=== PATIENT | female | born 1970 | race Two or more races ===

== ENCOUNTER 2017-01-25 08:02 | Emergency (ER) | payer OTHER ==
[2017-01-25 08:13] VITALS: BP 115/69; PULSE 83; TEMP 98; BMI 32.3
--- NOTE | 2017-01-25 09:19 | PDOC ---
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 Patient reports recently taking Augmentin, Bentyl, prednisone and cetirizine when asked patient why she was taken the medication she states she had something called "with my liver" medication did not coincide to the patient was stating so I called her primary care doctor spoke to Dr. Hampton who states patient is being treated for upper respiratory infection and gallstones. Patient was unaware that she had an upper respiratory infection. Patient denies any respiratory difficulty, no swelling to throat, no difficulty swallowing, no fever.] Past Medical History: [Patient is unsure if she has hepatitis A and B]. Allergies: No known allergies Medications: [See medication list] Family History: Non-contributory Social History: Denies smoking, alcohol use, or IVDU Review of Systems GENERAL/CONSTITUTIONAL: [No fever or chills. No weakness. No weight change.] HEAD, EYES, EARS, NOSE AND THROAT: [No change in vision. No ear pain or discharge. No sore throat. ] CARDIOVASCULAR: [No chest pain or shortness of breath.] RESPIRATORY: [No cough, wheezing, or hemoptysis.] GASTROINTESTINAL: [No nausea, vomiting, diarrhea or constipation. No rectal bleeding.] GENITOURINARY: [No dysuria, frequency, or change in urination.] MUSCULOSKELETAL: [No joint or muscle swelling or pain. No neck or back pain.] SKIN AND BREASTS: [No rash or easy bruising.] NEUROLOGIC: [No headache, vertigo, loss of consciousness, or loss of sensation.] PSYCHIATRIC: [No depression or anxiety.] ENDOCRINE: [No increased thirst. No abnormal weight change.] HEMATOLOGIC/LYMPHATIC: [No anemia, easy bleeding, or history of blood clots.] ALLERGIC/IMMUNOLOGIC: [Pruritic papular erythematous mildly nonraised areas to bilateral arms, legs.] Physical Exam: GENERAL: [The patient is awake, alert, and fully oriented, in no acute distress. ] EYES: [Pupils equal, round and reactive to light, extraocular movements intact, sclera anicteric, conjunctiva clear.] ENT: [Ears normal, nares patent, oropharynx clear without exudates. Moist mucous membranes. No uvula deviation] NECK: [Normal range of motion, supple without lymphadenopathy, JVD, or masses.] LUNGS: [Breath sounds equal, clear to auscultation bilaterally. No wheezes, and no crackles.] HEART: [Regular rate and rhythm, normal S1 and S2 without murmur, rub or gallop. ] ABDOMEN: [Soft, nontender, normoactive bowel sounds. No guarding, no rebound. No masses. No bruising or abrasions] MUSCULOSKELETAL: [Normal range of motion, no edema. No clubbing or cyanosis. No cords, erythema, or tenderness. No CVA Tenderness with fist.] NEUROLOGICAL: [Cranial nerves II through XII grossly intact. Normal speech, normal gait.] SKIN: [Pruritic papular erythematous mildly nonraised areas to bilateral arms, legs] Past History - Past Medical History Allergies/Adverse Reactions: Allergies Allergy/AdvReac Type Severity Reaction Status Date / Time No Known Allergies Allergy Verified 01/25/17 08:08 Home Medications: Ambulatory Orders Cetirizine HCl 10 mg PO DAILY 01/25/17 Dicyclomine HCl [Bentyl -] 20 mg PO Q8H 01/25/17 Diphenhydramine HCl [Benadryl -] 50 mg PO Q8H #18 capsule 01/25/17 COPD: No - Reproductive History (#): 6 Para: 4 Cervical CA: No Dysfunctional Uterine Bleeding: No Ectopic : No Endometrial CA: No Polycystic Ovaries: No Therapeutic (s) & number: No Tubal Ligation: No Spontaneous : 1 - Immunization History Td Vaccination: No - Suicide/Smoking/Psychosocial Hx Smoking Status: No Smoking History: Never smoked Have you smoked in the past 12 months: No Number of Cigarettes Smoked Daily: 0 Information on smoking cessation initiated: No Hx Alcohol Use: No Drug/Substance Use Hx: No Substance Use Type: None *Physical Exam - Vital Signs Last Vital Signs Temp Pulse Resp BP Pulse Ox 98.0 F 83 18 115/69 100 01/25/17 08:09 01/25/17 08:09 01/25/17 08:09 01/25/17 08:09 01/25/17 08:09 Medical Decision Making - Medical Decision Making 01/25/17 09:33 A/P: Patient with generalized allergic reaction without any respiratory difficulty has had rash for 2 days most likely penicillin allergy however unknown because patient is on 4 new medications. I spoke with the patient's primary care doctor we will DC all medications patient to follow-up in office started on Benadryl. She will follow up in office of primary care doctor today. *DC/Admit/Observation/Transfer Diagnosis at time of Disposition: Allergic reaction to drug Qualifiers: Encounter type: subsequent encounter Qualified Code(s): T78.40XD - Allergy, unspecified, subsequent encounter - Discharge Dispostion Disposition: HOME Condition at time of disposition: Stable Admit: No - Prescriptions Prescriptions: Diphenhydramine HCl [Benadryl -] 50 mg PO Q8H #18 capsule - Referrals - Patient Instructions Printed Discharge Instructions: DI for Adverse Drug Reaction -- Allergic Additional Instructions: Discontinue all medications until follow-up with primary care doctor, recommend follow-up today - Post Discharge Activity Forms/Work/School Notes: Back to Work
== END 2017-01-25 09:33 | disposition home or self-care (01) ==
LOC: JERFT 08:02 → JER 08:02 → JERFT 09:33
DX: R21 Rash and other nonspecific skin eruption (principal); T36.0X5A Adverse effect of penicillins, initial encounter
CPT/HCPCS: 99281-25

== ENCOUNTER 2018-04-05 18:51 | Emergency (ER) | payer OTHER ==
--- NOTE | 2018-04-05 18:56 | PDOC ---
Rapid Medical Evaluation Chief Complaint: Diarrhea Time Seen by Provider: 04/05/18 18:55 Medical Evaluation: Allergies Allergy/AdvReac Type Severity Reaction Status Date / Time No Known Allergies Allergy Verified 01/25/17 08:08 04/05/18 18:55 I have performed a brief in person evaluation of this patient. The patient presents with the CC of: Diarrhea HPI: Pt complains of diarrhea x 4 days. Denies taking abx and denies recent travel. PE: Skin: Clear Lungs: Clear Heart: RRR Abd: non tender MS: Moves all extremities without difficulty Neuro: Alert and oriented Psych: Appropriate affect Pt will proceed to the main ED for further evaluation. Discharge Disposition - Diagnosis Diarrhea Qualifiers: Diarrhea type: unspecified type Qualified Code(s): R19.7 - Diarrhea, unspecified - Referrals - Patient Instructions - Post Discharge Activity
[2018-04-05 18:58] VITALS: BMI 31.4
[2018-04-05] MEDS ORDERED: MAG HYDROX/AL HYDROX/SIMETH 30 ML UNIT-DOSE CUP PO ONE (19:55)
[2018-04-05] MEDS ORDERED: ONDANSETRON *ODT* 4 MG TABLET SL ONE (19:55)
[2018-04-05] MEDS ORDERED: SODIUM CHLORIDE 500 ML IV STA (19:55)
[2018-04-05] MEDS ORDERED: FAMOTIDINE 20 MG/50 ML IVPB 20 MG/50 ML MG IVPB ONE ×2 (19:55→21:06)
[2018-04-05] MEDS ORDERED: ACETAMINOPHEN 325 MG TABLET (FP) PO ONE (19:56)
[2018-04-05] MEDS ORDERED: ACETAMINOPHEN 325 MG TABLET (FP) ONE (21:05)
[2018-04-05] MEDS ORDERED: ONDANSETRON *ODT* 4 MG TABLET ONE (21:06)
[2018-04-05] MEDS ORDERED: MAG HYDROX/AL HYDROX/SIMETH 30 ML UNIT-DOSE CUP ONE (21:06)
[2018-04-05 21:15] LABS: BASO % 0.7 % (0-2.0); HEMATOCRIT 42.5 % (32.4-45.2); HEMOGLOBIN 14.8 GM/dL (10.7-15.3); LYMPH % 11.3 % (8-40); MCH 29.2 pg (25.7-33.7); MCHC 34.8 g/dl (32.0-36.0); MEAN CELL VOLUME 83.9 fl (80-96); MEAN PLT VOLUME 8.6 fl (7.5-11.1); PLATELET COUNT 232 K/MM3 (134-434); RBC 5.07 M/mm3 (3.60-5.2); RDW 13.9 % (11.6-15.6)
--- NOTE | 2018-04-05 21:20 | PDOC ---
History of Present Illness - General Chief Complaint: Diarrhea Stated Complaint: FEVER/DIARRHEA Time Seen by Provider: 04/05/18 18:55 History Source: Patient Exam Limitations: Clinical Condition - History of Present Illness Initial Comments: 04/05/18 21:25 Patient with no significant past medical history present with complaint of 4 day history of epigastric pain, diarrhea, nausea and fever. Patient report vomiting twice yesterday but no vomiting today. Patient report 4 episodes of diarrhea today and unable to keep any food down. Patient LMP September 28. Patient denies any other symptoms Timing/Duration: other (4 days) Past History - Past Medical History Allergies/Adverse Reactions: Allergies Allergy/AdvReac Type Severity Reaction Status Date / Time No Known Allergies Allergy Verified 04/05/18 20:51 Home Medications: Ambulatory Orders Amox-Tr/K Cl [Augmentin - 875Mg Tablet] 1 tab PO BID #14 tablet 04/05/18 Ondansetron [Zofran Odt -] 4 mg SL Q8H PRN #12 od.tablet 04/05/18 COPD: No Other medical history: Pt denies - Reproductive History (#): 6 Para: 4 Cervical CA: No Dysfunctional Uterine Bleeding: No Ectopic : No Endometrial CA: No Polycystic Ovaries: No Therapeutic (s) & number: No Tubal Ligation: No Spontaneous : 1 - Immunization History Td Vaccination: No - Suicide/Smoking/Psychosocial Hx Smoking Status: No Smoking History: Never smoked Have you smoked in the past 12 months: No Number of Cigarettes Smoked Daily: 0 Information on smoking cessation initiated: No Hx Alcohol Use: No Drug/Substance Use Hx: No Substance Use Type: None Review of Systems - Review of Systems Able to Perform ROS?: Yes Is the patient limited Lithuanian proficient: No Constitutional: Yes: See HPI, Fever, Malaise HEENTM: Yes: Symptoms Reported, See HPI, Nose Congestion. No: Eye Pain, Blurred Vision, Tearing, Recent change in vision, Double Vision, Cataracts, Ear Pain, Ocular Prothesis, Ear Discharge, Nose Pain, Tinnitus, Nose Bleeding, Hearing Loss, Throat Pain, Throat Swelling, Mouth Pain, Dental Problems, Difficulty Swallowing, Mouth Swelling, Other Respiratory: No: Symptoms reported, See HPI, Cough, Orthopnea, Shortness of Breath, SOB with Exertion, SOB at Rest, Stridor, Wheezing, Productive cough, Hemoptysis, Other Cardiac (ROS): No: Symptoms Reported, See HPI, Chest Pain, Edema, Irregular Heart Rate, Lightheadedness, Palpitations, Syncope, Chest Tightness, Other ABD/GI: Yes: See HPI, Diarrhea, Nausea, Vomiting, Abdominal cramping (epigastric ). No: Constipated, Difficulty Swallowing, Rectal Bleeding, Tarry Stools : No: Dysuria, Discharge, Frequency, Flank Pain, Urgency Musculoskeletal: No: Back Pain All Other Systems: Reviewed and Negative *Physical Exam - Vital Signs Last Vital Signs Temp Pulse Resp BP Pulse Ox 100.2 F H 121 H 18 129/71 100 04/05/18 18:55 04/05/18 18:55 04/05/18 18:55 04/05/18 18:55 04/05/18 21:00 - Physical Exam General Appearance: Yes: Nourished, Appropriately Dressed. No: Apparent Distress Moderate Sedation - Procedure Monitoring Vital Signs: Procedure Monitoring Vital Signs Temperature 100.2 F H 04/05/18 18:55 Pulse Rate 121 H 04/05/18 18:55 Respiratory Rate 18 04/05/18 18:55 Blood Pressure 129/71 04/05/18 18:55 O2 Sat by Pulse Oximetry (%) 100 04/05/18 21:00 ED Treatment Course - LABORATORY CBC & Chemistry Diagram: 04/05/18 21:02 04/05/18 21:02 - Medications Given in the ED: ED Medications Discontinued Medications Generic Name Dose Route Start Last Admin Trade Name Freq PRN Reason Stop Dose Admin Famotidine/Sodium Chloride 20 mg in 50 mls @ 100 mls/hr 04/05/18 19:55 21:14 Pepcid 20 Mg Premixed Ivpb - IVPB 04/05/18 20:24 100 mls/hr ONCE ONE Administration Sodium Chloride 500 mls @ 500 mls/hr 04/05/18 19:55 04/05/18 21:14 Normal Saline - IV 04/05/18 20:54 500 mls/hr ASDIR STA Administration Ondansetron HCl 4 mg 04/05/18 19:55 04/05/18 21:14 Zofran Odt - SL 04/05/18 19:56 4 mg ONCE ONE Administration Medical Decision Making - Medical Decision Making 04/05/18 21:26 Patient with no significant past medical history present with complaint of 4 day history of epigastric pain, diarrhea, nausea and fever. Patient report vomiting twice yesterday but no vomiting today. Exam significant for mild epigastric tenderness without guarding or rebound. Patient with fever of 100.2F orally. Otherwise unremarkable exam. Rapid strep positive. Rapid flu negative. CBC and chemistry labs ordered. Urine test ordered. IV fluid normal saline 500 mL bolus ordered. Tylenol ordered for fever. Pepcid 20 mg IV and Maalox 30 mL by mouth ordered for epigastric pain. Reassess after 20 minutes 04/05/18 21:46 CBC and chemistry lab normal. Patient reported feeling better after IV hydration , Pepcid and Maalox. Patient is stable for discharge on Augmentin for a week for strep pharyngitis and Zofran as needed for nausea or vomiting with PCP follow-up. *DC/Admit/Observation/Transfer Diagnosis at time of Disposition: Strep pharyngitis, Gastroenteritis Diarrhea Qualifiers: Diarrhea type: unspecified type Qualified Code(s): R19.7 - Diarrhea, unspecified Fever Qualifiers: Fever type: unspecified Qualified Code(s): R50.9 - Fever, unspecified - Discharge Dispostion Disposition: HOME Condition at time of disposition: Stable Decision to Admit order: No - Prescriptions Prescriptions: Amox-Tr/K Cl [Augmentin - 875Mg Tablet] 1 tab PO BID #14 tablet Ondansetron [Zofran Odt -] 4 mg SL Q8H PRN #12 od.tablet PRN Reason: nausea - Referrals Referrals: Alejo Bass MD [Staff Physician] - - Patient Instructions Printed Discharge Instructions: Throat Culture, DI for Strep Throat Additional Instructions: Your labs was normal. Your strep test was positive. Take medications as prescribed. increase fluid intake. Take tylenol alternating with motrin as needed for fever. Follow-up with PCP Print Language: MALAGASY - Post Discharge Activity
[2018-04-05 21:53] LABS: ALBUMIN 3.3 g/dl (3.4-5.0); ALK PHOS 99 U/L (45-117); ANION GAP 11 MMOL/L (8-16); BILIRUBIN,TOTAL 0.5 mg/dL (0.2-1); BLOOD UREA NITROGEN 12 mg/dL (7-18); CALCIUM 8.2 mg/dL (8.5-10.1); CHLORIDE 98 mmol/L (98-107); CO2 23 mmol/L (21-32); CREATININE 1.1 mg/dL (0.55-1.3); GLUCOSE,RANDOM 146 mg/dL (74-106); LIPASE 124 U/L (73-393); SGOT/AST 40 U/L (15-37); SGPT/ALT 51 U/L (13-61); SODIUM 132 mmol/L (136-145)
[2018-04-05 23:10] LABS: URINE APPEARANCE SLCLOUDY; URINE BILIRUBIN NEGATIVE (<2.0 mg/dL); URINE COLOR DKYELLOW; URINE GLUCOSE (UA) NEGATIVE (NEGATIVE); URINE KETONE 1+ (NEGATIVE); URINE LEUK ESTERASE NEGATIVE (NEGATIVE); URINE NITRITE NEGATIVE (NEGATIVE); URINE PROTEIN 2+ (NEGATIVE); URINE UROBILINOGEN NEGATIVE mg/dL (0.2-1.0)
[2018-04-05 23:12] LABS: HCG,QUALITATIVE URINE Negative
[2018-04-05 23:15] LABS: EPI CELLS FEW /HPF (FEW); URINE BACTERIA RARE /hpf (NONE SEEN); URINE HYALINE CAST 14 /lpf; URINE MUCUS MODERATE
[2018-04-05 23:22] VITALS: BP 103/68; PULSE 83; TEMP 98.9
== END 2018-04-05 23:22 | disposition home or self-care (01) ==
LOC: JER 18:51
PROC: 3E033GC Introduction of Other Therapeutic Substance into Peripheral Vein, Percutaneous Approach (ICD-10-PCS; principal; 2018-04-05)
PROC: 3E0337Z Introduction of Electrolytic and Water Balance Substance into Peripheral Vein, Percutaneous Approach (ICD-10-PCS; 2018-04-05)
DX: J02.0 Streptococcal pharyngitis (principal); K52.9 Noninfective gastroenteritis and colitis, unspecified; R19.7 Diarrhea, unspecified; R50.9 Fever, unspecified
CPT/HCPCS: 36415; 80053; 81003; 81015; 83690; 84703; 85025; 87040; 87086; 87804; 87880; 99284-25; Q0162